=== PATIENT | female | born 1970 | race African-American/Black ===

== ENCOUNTER 2019-12-07 13:51 | Observation (INO) ==
--- NOTE | 2019-12-07 14:43 | PROVIDER DOCUMENTATION ---
HPI-General Adult - General Chief Complaint: Abdominal Pain Stated Complaint: STOMACH PAIN Time Seen by Provider: 12/07/19 14:08 Source: patient, family Allergies/Adverse Reactions: Patient Allergies Allergy/AdvReac Type Severity Reaction Status Date / Time latex Allergy Mild whelp Verified 10/18/19 14:17 Sulfa (Sulfonamide Allergy Mild RASH Verified 10/18/19 14:17 Antibiotics) [Sulfa(Sulfonamide Antibiotics)] Corticosteroids Allergy Unknown Unknown Verified 10/18/19 14:17 (Glucocorticoids) azithromycin Allergy Unknown Verified 10/18/19 14:17 ibuprofen Allergy NAUSEA/VOMI Verified 10/18/19 14:17 TING Neuromuscular Blockers, Allergy Unknown Verified 10/18/19 14:17 Steroidal [Steroidal Neuromuscular Blockers] promethazine HCl * AdvReac uncontrolled Verified 10/18/19 14:17 [From Phenergan] movements Home Medications: Home Medication List Medication Instructions Recorded Confirmed Last Taken Type Losartan/Hydrochlorothiazide 1 each PO BID 08/18/12 12/07/19 06/10/16 History [Hyzaar 50-12.5 Tablet] Alprazolam [Xanax] 0.5 mg PO TID 01/14/14 12/07/19 06/10/16 History Albuterol [Albuterol Neb] 2.5 mg INH Q4H PRN PRN 02/05/14 12/07/19 08/13/15 History Methocarbamol [Robaxin] 750 mg PO BID 02/05/14 12/07/19 06/10/16 History Pregabalin [Lyrica] 75 mg PO TID 06/11/14 12/07/19 06/09/16 History Omeprazole 40 mg PO DAILY #30 capsule. 01/28/15 12/07/19 06/09/16 Rx Cholecalciferol (Vitamin D3) 50,000 unit PO DIRECTED 06/11/15 12/07/19 06/10/16 History [Vitamin D-3] Vitamin B Complex [Vitamin B-100 1 dose INJ DIRECTED 06/11/15 12/07/19 06/08/16 History Complex] Albuterol Sulfate Inhaler 2 puff INH Q6H PRN PRN #1 inhaler 08/01/15 12/07/19 Un known Rx [Ventolin Hfa] Fluticasone 50 Mcg Nasal [place] 1 spray [place] DAILY #1 bottle 10/06/15 02/11/20 10/18/15 Rx [Flonase] Loratadine/Pse E.r. 24 Hr 1 each PO DAILY #20 tablet 08/01/15 12/07/19 Unknown Rx [Claritin-D 24 Hr] Amphetamine Salts [Adderall] 20 mg PO BID 05/15/18 12/07/19 Unknown History Cyclobenzaprine [Flexeril] 5 mg PO TID #30 tablet 05/15/18 12/07/19 Unknown Rx Naproxen Sodium [Anaprox Ds] 550 mg PO BID #20 tablet 05/15/18 12/07/19 Unknown Rx Cetirizine [Zyrtec] 10 mg PO DAILY #20 tab 01/15/19 12/07/19 Unknown Rx Fluticasone 50 Mcg Nasal [place] 1 spray INTRANASAL DAILY #1 bottle 01/15/19 12/07/19 Unknown Rx [Flonase] Diclofenac 1% Gel [Voltaren 1% Gel] 2 gm TOP 4XDAY PRN #1 tube 01/20/19 12/07/19 Unknown Rx Hydroxyzine [Atarax] 25 mg PO TID PRN #20 tab 01/26/19 12/07/19 Unknown Rx Metoprolol [Lopressor] 50 mg PO BID #60 tab 10/18/19 12/07/19 Unknown Rx - History of Present Illness -Gen Adult Nature of Presenting Problems: 49yo female presents with CC of chest pain and abdominal pain. The patient reports constant chest ache since yesterday that radiates to her right shoulder. The patient reports burning abdominal pain starting today. The abdominal pain is diffuse. The pt has had some intermitent diarrhea and constipation. The patient reports that she has hx of high blood pressure. The patient denies fevers or vomiting. The patient does reports some nausea. The patient denies bl eeding or swelling. The pt does have reported hx of asthma, fibromyalgia and chronic pain. Location of Pain/Injury: reports: chest, abdomen Quality of Pain: reports: aching, burning Onset/Duration: reports: other (yesterday) Timing: reports: still present Context/Activities at Onset: reports: none Review of Systems - Adult - REVIEW OF SYSTEMS - ADULT Constitutional: reports: other (sweats). denies: fever Ears, Nose, Mouth & Throat: reports: no symptoms reported. denies: ear pain Cardiovascular: reports: chest pain Respiratory: denies: no symptoms reported Gastrointestinal: reports: abdominal pain Genitourinary: denies: dysuria Musculoskeletal: reports: back pain (chronic) Integumentary: denies: rash Neurological: denies: headache/migraines Psychiatric: reports: no symptoms reported. denies: alcohol/drug dependence Endocrine: reports: no symptoms reported Hematologic/Lymphatic: reports: no symptoms reported Allergic/Immunologic: reports: no symptoms reported Past History - Adult - PAST MEDICAL HISTORY-ADULT Review of Records: reports: Old Records Reviewed Major Childhood Illnesses: reports: denies history Cardiovascular: reports: HTN Respiratory: reports: asthma, sleep apnea Gastrointestinal: reports: denies history Obstetrical/Gynecological: reports: denies history Genitourinary: reports: denies history Musculoskeletal: reports: arthritis, chronic pain, fibromyalgia Neurological: reports: denies history Psychiatric: reports: anxiety Endocrine/Immune: reports: denies history Other Conditions: reports: denies history - PRIOR SURGERIES/PROCEDURES Surgical/Procedure History: reports: recent surgery, cholecystectomy, hysterectomy, orthopedic (extremity) (elbow, carpal tunnel, R arm), gastric bypass - IMMUNIZATION STATUS Childhood Immunizations: See Nurse Assessment Flu Vaccine: See Nurse Assessment - FAMILY HISTORY Family History: reviewed, not pertinent Physical Exam-General - PHYSICAL EXAM-ADULT Initial Vital Signs Reviewed: Yes - CONSTITUTIONAL General Appearance: appears well, alert, no apparent distress - EYES Eyes: PERRL/EOMI. negative: photophobia, scleral icterus - HEAD, EARS, NOSE, MOUTH & THROAT HENMT: normocephalic/atraumatic, moist mucous membranes, pharynx normal - NECK Neck: non-tender, supple - RESPIRATORY Respiratory: lungs clear, normal breath sounds, no respiratory distress - CARDIOVASCULAR Cardiovascular: no edema, bradycardia - GASTROINTESTINAL (ABDOMEN) Abdominal Exam: soft, tenderness (mild diffuse) - LYMPHATIC Lymphatic: negative: cervical node tenderness - MUSCULOSKELETAL Extremity: non-tender. negative: deformity - SKIN Integumentary: normal color, warm/dry - NEUROLOGIC Neurologic: decorator store II-XII nml as tested, no motor/sensory deficits. negative: motor weakness, sensory deficit - PSYCHIATRIC Psych/Mental Status: normal mood/affect, normal thought content, normal thought process Progress - PLAN OF CARE/RESULTS Progress/Plan/Lab Results: Vital Signs - 8 hr 12/07/19 13:54 Temperature 98.5 F Pulse Rate 46 L Respiratory Rate 16 Blood Pressure 182/85 O2 Sat by Pulse Oximetry 100 Result Diagrams: 12/07/19 15:41 12/07/19 15:41 - REASSESSMENT Reassessment #1 Status: other (Requested to admit the patient for observation due to chest pain and bradycardia. The hospitalist team requested that we discuss the case with cardiology. Discussed case with Dr. Woods who was agreeable with admission due to bradycardia with chest pain with given glucagon to offset pt BB and hydralizine for BP. Hospitalist team then called cardiology and the communicated plan was to trial the glucagon and see if patient improved if not would plan on admission. The pt continue to have chest pain despite glucagon, nitro, improved blood pressure. Given pt heart score of 4, new onset bradycardia, and persistent chest pain despite intervention the hospitalist team was called to admit the patient. Hospitalist came down and evaluated the patient and agreed to admission.) - EKG 1 Time of EKG reading by physician:: 15:52 EKG Read and Signed by:: Alberto Ford (Entered and co-read Dr. Santizo) Rate: 42 Rhythm: sinus Latta: normal QRS: normal SC Interval: shortened ST Wave: normal Prior EKG Comparison: changes noted Comments: New sinus bradycardia - XRAY 1 XRAY Study: Chest Impression: See EMR Report ( EXAM: CHEST-2 VIEWS HISTORY: Chest pain TECHNIQUE: Two views COMPARISON: 10/18/2019 FINDINGS: The lungs are well expanded except for minimal atelectasis or scarring in the right lung base. The heart is not enlarged. The vessels are not distended. There are no infiltrates. No pleural effusions. IMPRESSION: Minimal right basilar atelectasis or scarring Electronically signed by Rd Monson 12/07/2019 2:57 PM 12/07/19 9254 Interpreting Physician: Rd Monson MD Dictated Date/Time: 12/07/19 1459 cc: Rasta Santizo MD; Liam Razo MD) Departure - Departure Date of Disposition Decision: 12/08/19 Time of Disposition Decision: 00:48 DIAGNOSIS: Symptomatic bradycardia Chest pain Qualifiers: Chest pain type: unspecified Qualified Code(s): R07.9 - Chest pain, unspecified Hypertension Qualifiers: Hypertension type: unspecified Qualified Code(s): I10 - Essential (primary) hypertension Disposition: ADMITTED INPATIENT 09 Certified Medical Emergency: Emergent Condition: Fair - Critical Care Note This patient required my direct & personal management of CC.: No Attestation - Physician/ [place] Attestation Patient care was provided by Advanced Practice Provider:: No The physician spent face to face time with patient:: Yes Advanced Practice Provider documentation review:: Supervising physician onsite and consulted in the evaluation and care of this patient. The physician did have a face to face encounter with the patient. - HEART Score HEART Score: History: Moderately Suspicious HEART Score: ECG: Non-Specific Repolarization Disturbance/LBBB/PM HEART Score: Age: 45-65 Years HEART Score: Risk Factors for Atherosclerotic Disease: 1 or 2 Risk Factors HEART Score: Troponin: < or = Normal Limit Total HEART Score:: 4
--- NOTE | 2019-12-07 14:59 | Diag Imaging Result Doc PS360 ---
EXAM: CHEST-2 VIEWS HISTORY: Chest pain TECHNIQUE: Two views COMPARISON: 10/18/2019 FINDINGS: The lungs are well expanded except for minimal atelectasis or scarring in the right lung base. The heart is not enlarged. The vessels are not distended. There are no infiltrates. No pleural effusions. IMPRESSION: Minimal right basilar atelectasis or scarring Electronically signed by Rd Monson 12/07/2019 2:57 PM
[2019-12-07 16:02] LABS: BASO# 0.05 X1000 (0.0-0.2); BASO% 0.5 % (0.0-0.8); EOS# 0.36 X1000 (0.0-0.7); EOS% 3.5 % (0.0-10.0); HEMATOCRIT 39.3 % (37.0-47.0); IMM GRAN# 0.04 X1000 (0.0-0.04); IMM GRAN% 0.4 % (0.0-0.5); LYMPH# 3.73 X1000 (1.2-3.4); MCH 32.8 PG (27-31); MCHC 33.1 g/dL (33-37); MCV 99.2 FL (81-99); MONO# 0.46 X1000 (0.11-0.59); MONO% 4.4 % (1.7-9.3); MPV 11.4 FL (7.4-10.4); NEUT# 5.72 X1000 (1.4-6.5); NEUT% 55.2 % (42.2-75.2); RBC 3.96 XMIL (4.2-5.4); RDW 12.8 % (11.5-14.5); WBC 10.36 X1000 (4.8-10.8)
[2019-12-07 16:03] LABS: PLT 127 X1000 (130-400)
--- NOTE | 2019-12-07 16:09 | EKG Report ---
Test Performed on : 12/07/2019 3:52:47 PM Test Reason : Bradycardia and chest pain Blood Pressure : / mmHG Vent. Rate : 042 BPM Atrial Rate : 042 BPM P-R Int : 100 ms QRS Dur : 078 ms QT Int : 476 ms P-R-T Axes : 097 031 035 degrees QTc Int : 397 ms Marked sinus bradycardia. with short ND Abnormal ECG When compared with ECG of 18-OCT-2019 14:29, Vent. rate has decreased BY 28 BPM QT has shortened Unconfirmed Result
[2019-12-07 16:17] LABS: AGAP 12; ALB/GLOB RATIO 1.3; ALKALINE PHOSPHATASE 66 U/L (32-104); AMYLASE 101 U/L (20-200); BUN 16 mg/dL (8-22); CALCIUM 9.2 mg/dL (8.8-10.2); CHLORIDE 105 mmol/L (98-107); CK PROFILE 79 U/L (24-173); COSMO 283; CREATININE 1.1 mg/dL (0.5-0.9); ESTIMATED GFR > 60; GLUCOSE 109 mg/dL (70-104); GOT 24 U/L (10-30); GPT 15 U/L (10-36); LIPASE 30 U/L (13-60); POTASSIUM 4.3 mmol/L (3.5-5.1); SODIUM 141 mmol/L (136-145); TCO2 24 mmol/L (25-35); TOTAL BILIRUBIN 0.16 mg/dL (0.20-1.00); TOTAL PROTEIN 7.1 g/dL (6.3-8.3)
[2019-12-07 16:21] LABS: INR 0.95; PROTIME 12.8 Seconds (11.0-16.0)
[2019-12-07 16:22] LABS: PTT 27.4 Seconds (22.3-41.8)
[2019-12-07] MEDS ORDERED: VASOTEC IV ONE (16:37)
[2019-12-07] MEDS ORDERED: G.I. COCKTAIL PO ONE (16:49)
[2019-12-07] MEDS ORDERED: APRESOLINE IV ONE ×2 (17:51→17:56)
[2019-12-07] MEDS ORDERED: NITROGLYCERIN TOP ONE (17:53)
[2019-12-07] MEDS ORDERED: GLUCAGON SUBQ ONE (18:06)
[2019-12-07 18:31] LABS: URINE SOURCE CLEAN CATCH
[2019-12-07 18:36] LABS: BILIRUBIN URINE NEGATIVE (NEGATIVE); BLOOD URINE NEGATIVE (NEGATIVE); COLOR YELLOW; GLUCOSE URINE NEGATIVE (NEGATIVE); KETONE URINE NEGATIVE (NEGATIVE); LEUKOCYTES URINE TRACE (NEGATIVE); NITRITE URINE NEGATIVE (NEGATIVE); PH URINE 5.5; PROTEIN URINE NEGATIVE (NEGATIVE); TURBIDITY URINE CLEAR (CLEAR); UR EPITHELIAL CELLS <10 /HPF (<10); URINE BACTERIA NEGATIVE /HPF; URINE RBC <10 /HPF (<10); URINE WBC <10 /HPF (<10); UROBILINOGEN URINE NORMAL (NORMAL)
--- NOTE | 2019-12-07 19:54 | Diag Imaging Result Doc PS360 ---
EXAM: CT ABD/PELVIS W/IV CONT ONLY 12/07/2019 HISTORY: Abdominal Pain TECHNIQUE: This exam was performed using automated exposure control, adjustment of mA or kV according to patient size, and/or use of iterative reconstruction technique. COMMENT: There is bibasilar atelectasis versus pneumonia particularly in the right lower lobe. This was not present on 01/26/2019. There has been gastric bypass. There is no evidence of hydronephrosis or stones and no renal masses are demonstrated. There has been previous cholecystectomy. The pancreas is normal in appearance. The aorta is normal in caliber. The mesenteric and renal arteries are patent. There is some periportal edema in the liver which has not changed since the previous study. The common bile duct is not distended measuring less than 7 mm in diameter. The degree of constipation which was present on the previous study is no longer present. The portal vein is patent. Pelvis: There is free fluid in the cul-de-sac. There has been hysterectomy. There is some fluid throughout small bowel loops in the pelvis. This is similar in appearance to the previous study. There is gas and stool in the cecum. There is no evidence of appendicitis. There are no adnexal masses. The regional skeleton appears to be intact. IMPRESSION: Postsurgical changes. The possibility of mild enteritis cannot be excluded. Mild constipation. Nonspecific free pelvic fluid. Bibasilar atelectasis and/or bronchopneumonia. Electronically signed by Guy Martinez 12/07/2019 7:51 PM
[2019-12-07] MEDS ORDERED: STERILE WATER INJ. ONE (19:55)
--- NOTE | 2019-12-08 00:02 | HISTORY AND PHYSICAL ---
PRIMARY CARE PHYSICIAN: Dr. Razo. CHIEF COMPLAINT: Chest pain. HISTORY OF PRESENTING ILLNESS: A 49-year-old female with a history of hypertension, fibromyalgia and asthma who had presented to emergency department with complaint of chest pain. She states that it was mostly pressure-like and was going to her back and right shoulder. The patient states that the symptoms were not improving. She was seen in the ED and was also noted to be bradycardic and heart rate around 40s. Her case was discussed with Cardiology and it was thought that we will place her for observation for further evaluation and management. At the time of my examination, patient denied any headache, fever, chills, nausea, vomiting, diarrhea, hemoptysis, melena, weight changes, but complained of chest pain and some abdominal pain. PAST MEDICAL HISTORY: Includes hypertension, fibromyalgia, asthma. PAST SURGICAL HISTORY: Cholecystectomy, gastric sleeve, hysterectomy. ALLERGIES: Sulfa and steroids. CURRENT MEDICATIONS: Include albuterol nebulizers q.4 hours, Xanax 0.5 mg p.o. t.i.d., Adderall 20 mg p.o. b.i.d., losartan hydrochlorothiazide 50/12.5 one p.o. b.i.d., metoprolol 50 mg p.o. b.i.d., omeprazole 40 mg p.o. daily. SOCIAL HISTORY: A 15 pack year history of smoking. She admits to social alcohol use. Denies any illicit drug use. FAMILY HISTORY: Positive for coronary disease mother, father. REVIEW OF SYSTEMS: A 14 point review of systems is as in HPI. Other systems negative. PHYSICAL EXAMINATION: GENERAL: Cooperative, friendly female. She is resting more comfortably now. VITAL SIGNS: Temperature 98.5 degrees, pulse 46, respirations 16, blood pressure 182/85. HEENT: Atraumatic, normocephalic extraocular movements intact. PERRLA. NECK: No masses. CHEST: Clear to auscultation. CARDIOVASCULAR: Regular rate and rhythm. ABDOMEN: Soft. Positive bowel sounds. EXTREMITIES: No edema. NEUROLOGIC: She is awake, alert, oriented x3. : No bladder distention. SKIN: Warm. LABORATORIES AND STUDIES: WBC 10.36, hemoglobin 13.1, hematocrit 39.3, platelets 127,000. Sodium 141, potassium 4.3, chloride 105, CO2 is 24, BUN is 16, creatinine is 1.1, glucose 109. Troponin is less than 6. Chest x-ray, right basilar atelectasis. ASSESSMENT: A 49-year-old female with a history of hypertension, fibromyalgia and asthma, who had presented to emergency department with 1-day history of having chest discomfort. She was seen in the emergency department and due to presenting symptoms it was thought that we will place her for observation for further evaluation management. Apparently, patient during initial evaluation was found to be bradycardic and she was recently started on metoprolol and clonidine and this was held and bradycardia improved. 1. Chest pain, atypical. 2. Bradycardia, asymptomatic. 3. Hypertension. 4. Fibromyalgia. 5. Asthma. PLAN: 1. We will admit patient to medical floor with telemetry. 2. Check cardiac workup. Check EKG, serial cardiac enzymes. Have patient continue on aspirin. We will use sublingual nitroglycerin p.r.n. chest pain. 3. We will consult Cardiology. 4. Continue monitor patient on telemetry and discontinue metoprolol and clonidine. 5. We will monitor blood pressure closely. 6. We will continue with pain control for patient. 7. Continue with DuoNeb p.r.n. 8. Put patient on DVT prophylaxis with Lovenox. 9. We will continue to follow and reassess, make further recommendation based on patient's clinical course. cc: Timothy Streeter MD MTDD
[2019-12-08] MEDS ORDERED: ZOFRAN IV PRN (00:48)
[2019-12-08] MEDS ORDERED: TYLENOL PO PRN (00:48)
[2019-12-08] MEDS ORDERED: LOVENOX SUBQ SCH (00:48)
[2019-12-08 01:25] LABS: BASO# 0.02 X1000 (0.0-0.2); BASO% 0.2 % (0.0-0.8); EOS# 0.19 X1000 (0.0-0.7); EOS% 1.7 % (0.0-10.0); HEMATOCRIT 35.8 % (37.0-47.0); HEMOGLOBIN 11.5 g/dL (12.0-16.0); IMM GRAN# 0.05 X1000 (0.0-0.04); IMM GRAN% 0.4 % (0.0-0.5); LYMPH# 2.53 X1000 (1.2-3.4); LYMPH% 22.1 % (20.5-51.1); MCH 31.6 PG (27-31); MCHC 32.1 g/dL (33-37); MCV 98.4 FL (81-99); MONO# 0.41 X1000 (0.11-0.59); MONO% 3.6 % (1.7-9.3); MPV 11.3 FL (7.4-10.4); NEUT# 8.23 X1000 (1.4-6.5); PLT 219 X1000 (130-400); RBC 3.64 XMIL (4.2-5.4); RDW 12.9 % (11.5-14.5); WBC 11.43 X1000 (4.8-10.8)
[2019-12-08] MEDS ORDERED: PRILOSEC PO SCH (07:00)
[2019-12-08 08:14] VITALS: BP 160/69
[2019-12-08] MEDS ORDERED: ASPIRIN PO SCH (09:00)
[2019-12-08] MEDS ORDERED: HYZAAR 50/12.5 MG PO SCH (09:00)
[2019-12-08] MEDS ORDERED: NON-FORMULARY MED (Omeprazole 40 MG) PO SCH (09:00)
[2019-12-08] MEDS ORDERED: FLONASE NAS SCH (09:00)
[2019-12-08] MEDS: XANAX PO SCH ×2 (09:53→14:19)
--- NOTE | 2019-12-08 11:07 | CARDIOLOGY CONSULTATION ---
DATE: 12/08/2019 CHIEF COMPLAINT ON PRESENTATION: Abdominal pain. HISTORY OF PRESENT ILLNESS: Ms. Velasco is a 49-year-old, black female with a history of hypertension and fibromyalgia. She presented for complaints of abdominal pain that sound like they have been off and on for the last 3 to 4 days. She had an episode occurring Friday that resulted in emesis. She subsequently had an episode that occurred yesterday morning, shortly after eating chips. She felt like it was a very raw pain that involved basically diffusely across her abdomen. She has not had any diarrhea. She did not have any emesis yesterday. She cannot remember the last time she had a bowel movement, but thinks it has been several days. She has a history of bariatric surgery in the past, and has had periodic bouts of abdominal pain, but said yesterday's was much different. Notably in the ER, she was noted to have a heart rate occasionally in the 40s. She has no complaints of syncope or dizziness. She has had some complaints of pain that is localized around the right shoulder, and seems to be worse when her granddaughter lays on it. There is a component that is worse with exertion of the right upper extremity, but there is not a component that is occurring with general walking. PAST MEDICAL HISTORY: Significant for: 1. Hypertension. 2. Fibromyalgia. 3. Asthma. 4. History of musculoskeletal chest discomfort, evaluated in my office in 10/2014. SOCIAL HISTORY: A [id number] history of smoking. Occasional alcohol use. No illicit drugs. FAMILY HISTORY: Significant for coronary disease in both her mother and her father. REVIEW OF SYSTEMS: A 10-system review of systems is negative, except for those things mentioned in the HPI. PHYSICAL EXAMINATION: Vital Signs: She is afebrile. Heart rate is 58 most recently. She has had heart rates anywhere from 46 to 58. Her blood pressure is 160/69. General: She is in no acute distress. HEENT: Oropharynx is moist. Poor dentition. Eye examination shows pink conjunctivae, white sclerae. Neck: No obvious thyromegaly or thyroid tenderness. Cardiovascular: She sounds to be in a regular rate and rhythm. She has no obvious murmurs. She has no lower extremity edema. She has no S3 present. Chest: Clear bilaterally. She has no increased work of breathing. Abdomen: Soft. Minimal diffuse tenderness. No obvious localization of the pain. No rebound, no guarding. Skin: Warm and dry throughout without any rashes. Neurological: She is moving all extremities well. She has no lateralizing deficits. Psychiatric: Alert, oriented, pleasant. She has normal mood and affect. PERTINENT DATA: Her chest x-ray shows minimal right basilar atelectasis or scarring. She had an abdomen and pelvis CT that demonstrated post surgical changes, possibility of mild enteritis, mild constipation, bibasilar atelectasis, or possible pneumonia. She had an EKG that showed sinus bradycardia at 42 beats per minute. This was done at 1552 yesterday. Her lab data shows white count 11.4, hematocrit 35, platelet count 219,000. Her sodium is 141, potassium 4.3, BUN is 16, creatinine is 1.1. Her CK was 79 and 65 respectively. She had a troponin initially checked at 1541 that was less than 6. Two subsequent checks, with the last one at 1:10 a.m. this morning, were 8. TSH checked in 12/2018 was 0.7. ASSESSMENT: Ms. Velasco is a 49-year-old female who presented with abdominal pain, found to have an incidental bradycardia that does not seem to be symptomatic. PLAN: At this point, I would discontinue the metoprolol, which she is on at home. In addition, she said she thinks she has had issues with Hyzaar in the past, so we will discontinue the Hyzaar, place her on hydrochlorothiazide 25 mg daily and amlodipine 5 mg b.i.d. From my standpoint, she can likely be discharged home when stable from a primary team standpoint. I will check a TSH. cc: Cooper Brooks MD
[2019-12-08] MEDS ORDERED: TUMS PO ONE (14:04)
[2019-12-08] MEDS ORDERED: NORVASC PO SCH (21:00)
--- NOTE | 2019-12-08 22:04 | CONSULTATION ---
DATE OF CONSULTATION: 12/07/2019 REASON FOR CONSULTATION: I was contacted by the ER for possible admission for the patient. She presented with nausea and stomach pain. ER COURSE: She was instantly noted to have sinus bradycardia. Initial workup with troponin, chest x-ray, EKG and basic lab work was completely unremarkable aside from a minimally elevated BNP and aforementioned sinus bradycardia. The patient's blood pressure, oxygenation and temperature were all essentially normal. Discussed the case with Cardiology, Dr. Saunders, and it was thought that the patient's presentation was extraordinarily unlikely to be an acute cardiac event. ASSESSMENT/PLAN: The patient recently had been started on both Toprol and clonidine, which is likely the source of her sinus bradycardia. Dr. Saunders recommended a dose of glucagon and monitoring for a short period and discharge home. Patient's heart score was 1, indicating quite low risk. Her history was not at all suspicious. Her EKG had no ST abnormalities and showed only sinus bradycardia. She did get 1 point for her age, and her only risk factor was hypertension, so she did not have enough risk factors to get any heart score points further. Discussed this with the ER. They agreed to give glucagon and monitor the patient and to recheck a second troponin to completely rule out acute coronary syndrome.
[2019-12-09] MEDS ORDERED: HYDROCHLOROTHIAZIDE PO SCH (09:00)
--- NOTE | 2019-12-09 11:31 | DISCHARGE SUMMARY ---
ADMISSION DATE: 12/07/2019 DISCHARGE DATE: 12/08/2019 DISCHARGE DIAGNOSES: 1. Chest pain, resolved, 2. Bradycardia, resolved. 3. Right lower lobe pneumonia under treatment. 4. Enteritis, improved. CONSULTATIONS: Dr. Cooper Brooks from Cardiology. IMAGING STUDIES: Abdomen and pelvis CT showed postsurgical changes. The possibility of mild enteritis cannot be excluded. Mild constipation, bibasilar atelectasis and/or bronchopneumonia in the right lower lobe. HOSPITAL COURSE: In brief, this is a 49-year-old, female with history of fibromyalgia and hypertension and asthma, who presented to the emergency department complaining of chest pain. She was having cough with productive yellowish sputum. She was found to be bradycardic in the ER, and that is why this patient was admitted. She was also complaining of abdominal pain. We found out that she has some enteritis. The patient was evaluated by Cardiology and they decided to stop the beta-jean-paul and change the Hyzaar to amlodipine 5 mg p.o. b.i.d. plus hydrochlorothiazide. The patient is feeling fine. Abdominal pain is better. Considering the finding of enteritis and also this right lower lobe pneumonia, we prefer to treat her with antibiotics by mouth considering that this patient is not requiring any oxygen supplementation, that she is not spiking any fever, and also her white cell count is back to normal. Patient's white cell count has been always normal. The patient agreed with the plan. The patient will be seen by his primary care doctor in a week. DISCHARGE PHYSICAL EXAMINATION: Vital Signs: Temperature 98.0 degrees, heart rate 58, respiratory rate 18, blood pressure 140/80, O2 saturation 98% on room air. General Examination: This is a 49-year-old, female, lying in bed in no acute distress. Cardiovascular exam: S1, S2 heard. No murmurs, gallops or rubs. Regular rate and rhythm. Respiratory exam: Clear bilaterally to auscultation. No work of breathing or using accessory muscles. Abdomen: Soft. Nontender to palpation. Bowel sounds present. No organomegaly. Extremities: No clubbing, cyanosis, or edema. Peripheral pulses present in both legs. Neurological exam: The patient is alert and oriented x3. Moves 4 extremities. DISCHARGE DISPOSITION: Home to self-care. LIST OF MEDICATION: 1. Hydrochlorothiazide 25 mg 1 tablet p.o. daily. 2. Levofloxacin 750 mg 1 tablet p.o. daily. 3. Metronidazole 500 mg 1 tablet p.o. 3 times per day. 4. Amlodipine 5 mg 1 tablet p.o. b.i.d. 5. Alprazolam 0.5 mg 1 tablet p.o. 3 times per day. 6. Methocarbamol 750 mg 1 tablet p.o. b.i.d. 7. Albuterol 2.5 mg by inhalation every 4 hours as needed. 8. Pregabalin 75 mg p.o. 3 times per day. 9. Omeprazole 40 mg 1 tablet p.o. daily. 10. Cholecalciferol 50,000 units weekly. cc: Awais Ivory MD
== END 2019-12-08 14:27 | disposition home or self-care (01) ==
LOC: 3N 13:51 → ED 13:51 → SUATTDRO 22:29
PROVIDERS: ATTEND Internal Medicine